=== PATIENT | male | born 1995 | race Caucasian/White ===

== ENCOUNTER 2017-08-15 10:56 | Emergency (ER) | payer OTHER ==
[~2017-08-15] VITALS: Ht 172.7 cm; Wt 59.0 kg
[~2017-08-15 10:56] MED LIST: CIPR250 PO; IBUP600 PO; IBUP800 PO; PRED20 PO; SILSUL1TC TOP; TRAM50 PO
[2017-08-15] MEDS ORDERED: IBUP400 PO (11:09)
[2017-08-15] MEDS ORDERED: Augmentin 875-1 EACH PO (11:19)
[2017-08-15] MEDS ORDERED: Ultram50 MG PO (11:19)
== END 2017-08-15 11:29 | disposition home or self-care (01) ==
LOC: ER 10:56
DX: K04.7 Periapical abscess without sinus (principal); F17.200 Nicotine dependence, unspecified, uncomplicated
CPT/HCPCS: 99283

== ENCOUNTER 2017-11-26 18:51 | Emergency (ER) | payer OTHER ==
[~2017-11-26] VITALS: Ht 182.9 cm; Wt 81.7 kg
[~2017-11-26 18:51] MED LIST changes: +Augmentin 875-1 EACH PO; +IBUP400 PO; +Ultram50 MG PO
[2017-11-26] MEDS ORDERED: ERYT1OIN LEFTEYE (19:54)
== END 2017-11-26 20:36 | disposition home or self-care (01) ==
LOC: ER 18:51
DX: S05.02XA Injury of conjunctiva and corneal abrasion without foreign body, left eye, initial encounter (principal); H11.32 Conjunctival hemorrhage, left eye; F17.200 Nicotine dependence, unspecified, uncomplicated; W45.8XXA Other foreign body or object entering through skin, initial encounter
CPT/HCPCS: 99283

== ENCOUNTER 2017-12-03 21:05 | Emergency (ER) | payer OTHER ==
[~2017-12-03] VITALS: Ht 172.7 cm; Wt 61.2 kg
[~2017-12-03 21:05] MED LIST changes: +ERYT1OIN LEFTEYE
[2017-12-03] MEDS ORDERED: Amoxicillin500 MG PO (21:40)
== END 2017-12-03 21:55 | disposition home or self-care (01) ==
LOC: ER 21:05
DX: G89.18 Other acute postprocedural pain (principal); K08.89 Other specified disorders of teeth and supporting structures; F17.200 Nicotine dependence, unspecified, uncomplicated
CPT/HCPCS: 99283

== ENCOUNTER 2018-07-06 17:08 | Emergency (ER) | payer OTHER ==
[~2018-07-06] VITALS: Ht 170.2 cm; Wt 61.2 kg
[~2018-07-06 17:08] MED LIST changes: +Amoxicillin500 MG PO
[2018-07-06] MEDS ORDERED: KETO10 PO (18:00)
== END 2018-07-06 18:03 | disposition home or self-care (01) ==
LOC: ER 17:08
DX: S39.91XA Unspecified injury of abdomen, initial encounter (principal); V00.311A Fall from snowboard, initial encounter; F17.200 Nicotine dependence, unspecified, uncomplicated
CPT/HCPCS: 99282

== ENCOUNTER 2021-02-11 22:32 | Emergency (ER) | payer OTHER ==
[~2021-02-11] VITALS: Ht 170.2 cm; Wt 61.2 kg
[~2021-02-11 22:32] MED LIST changes: +KETO10 PO
[2021-02-11] MEDS ORDERED: AMOCLA875 PO (22:53)
[2021-02-11] MEDS ORDERED: IBUP800 PO (22:57)
== END 2021-02-11 23:08 | disposition home or self-care (01) ==
LOC: ER 22:32
DX: K04.7 Periapical abscess without sinus (principal); F17.200 Nicotine dependence, unspecified, uncomplicated
CPT/HCPCS: 99282; A9270

== ENCOUNTER 2021-05-19 21:56 | Emergency (ER) | payer OTHER ==
[~2021-05-19] VITALS: Ht 170.2 cm; Wt 54.4 kg
[~2021-05-19 21:56] MED LIST changes: +AMOCLA875 PO
[2021-05-19] MEDS ORDERED: AMOCLA875 PO (23:43)
== END 2021-05-20 00:08 | disposition home or self-care (01) ==
LOC: ER 21:56
DX: K04.7 Periapical abscess without sinus (principal); F17.290 Nicotine dependence, other tobacco product, uncomplicated
CPT/HCPCS: A9270

== ENCOUNTER 2021-05-27 07:59 | Emergency (ER) | payer OTHER ==
[~2021-05-27] VITALS: Ht 170.2 cm; Wt 59.0 kg
== END 2021-05-27 08:33 | disposition home or self-care (01) ==
LOC: ER 07:59
DX: K13.79 Other lesions of oral mucosa (principal); F17.210 Nicotine dependence, cigarettes, uncomplicated
CPT/HCPCS: 99282